=== PATIENT | female | born 1970 | race Caucasian/White ===

== ENCOUNTER 2020-01-03 13:53 | Emergency (ER) | payer OTHER, MEDICAID ==
[~2020-01-03] VITALS: Ht 157.5 cm; Wt 77.1 kg
[2020-01-03 14:53] LABS: ABSOLUTE LYMPHOCYTES 0.8 thou/uL (0.8-5.3); ABSOLUTE MONOCYTES 0.4 thou/uL (0.0-1.2); ABSOLUTE NEUTROPHILS 4.4 thou/uL (1.6-8.1); BASOPHILS 0.6 %; EOSINOPHILS 0.6 %; HEMATOCRIT 40.3 % (37.0-47.0); HEMOGLOBIN 13.7 gm/dL (12.0-15.0); LYMPHOCYTES 14.2 %; MCH 29.6 pg (26.0-34.0); MCV 87.1 fL (80.0-100.0); MONOCYTES 7.2 %; MPV 7.1 fl. (7.2-11.1); NUCLEATED RBCS 0 /100WBC; PLATELET COUNT* 214 thou/uL (150-400); POLYS 77.4 %; RBC 4.63 mil/uL (4.20-5.00); RDW-CV 15.3 % (10.5-14.5); WBC 5.7 thou/uL (4.0-11.0)
[2020-01-03 15:01] LABS: CALCIUM 9.4 mg/dL (8.5-10.1); CREATININE 1.1 mg/dL (0.6-1.3); POTASSIUM 3.6 mmol/L (3.5-5.1)
[2020-01-03 15:05] LABS: ALBUMIN 3.8 g/dL (3.4-5.0); TOTAL BILIRUBIN 0.9 mg/dL (<0.1-1.0); TOTAL PROTEIN 8.5 g/dL (6.4-8.2)
[2020-01-03 15:42] LABS: ACETAMINOPHEN < 2 ug/mL (10-30); ALCOHOL < 10 mg/dL (<10); SALICYLATE 2.7 mg/dL (2.8-20.0)
--- NOTE | 2020-01-03 15:47 | EKG ---
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: : [id number] Requested By: Dayton Montes Order Number: [id number] MD: Jeremie Awan Measurements Intervals Saline Rate: 75 P: 38 VT: 129 QRS: -28 QRSD: 95 T: 12 QT: 412 QTc: 461 Interpretive Statements Sinus rhythm Probable left ventricular hypertrophy Delayed R wave progression Borderline T abnormalities, inferior leads No previous ECG available for comparison Electronically Signed On 01-03-2020 15:47:24 CDT by Jeremie Awan [email or web address] <ELECTRONICALLY SIGNED> By: Jeremie Awan MD, [facility] 01/03/20 1547 1440 1440 Jeremie Awan MD, [facility] /EPI
[2020-01-03 19:02] VITALS: BP 100/61
== END 2020-01-03 19:03 | disposition home or self-care (01) ==
LOC: M.ERS 13:53
PROVIDERS: Family Medicine
DX: T50.901A Poisoning by unspecified drugs, medicaments and biological substances, accidental (unintentional), initial encounter (principal); R41.82 Altered mental status, unspecified; Z90.710 Acquired absence of both cervix and uterus; Z88.0 Allergy status to penicillin; Y92.89 Other specified places as the place of occurrence of the external cause